=== PATIENT | male | born 1970 | race African-American/Black ===

== ENCOUNTER 2025-10-06 18:55 | Emergency (ER) | payer OTHER ==
[~2025-10-06] VITALS: Ht 170.2 cm; Wt 77.0 kg
[2025-10-06 18:57] VITALS: O2SAT 98
[2025-10-06 21:59] LABS: BASOPHILS % 1.3 % (0.0-2.0); EOSINOPHILS % 2.0 % (0.0-5.0); HEMATOCRIT. 36.6 % (42.0-52.0); HEMOGLOBIN. 11.9 g/dL (14.0-18.0); LYMPHOCYTES % 34.4 % (20.0-50.0); MEAN PLATELET VOLUME 9.1 fl (7.4-10.4); MONOCYTES % 10.7 % (2.0-8.0); NEUTROPHILS % 51.6 % (40.0-76.0); PLATELET 250 x1000/uL (130-400); RED BLOOD CELL COUNT 4.03 mill/uL (4.7-6.1); RED CELL DISTRIBUTION WIDTH 15.6 % (11.6-14.6)
[2025-10-06 22:15] LABS: CREATININE 1.1 mg/dL (0.6-1.3)
[2025-10-06 22:16] LABS: UREA NITROGEN BLOOD 12 mg/dL (9-23)
[2025-10-06] MEDS: IBUPROFEN 600MG TABLET PO SCH (22:44)
[2025-10-06] MEDS ORDERED: NAPR-681 PO (23:04)
[2025-10-06 23:19] VITALS: BP 122/71; PULSE 88; RESP 18; TEMP 37; O2SAT 99
== END 2025-10-06 23:22 | disposition home or self-care (01) ==
LOC: ER 18:55
DX: M47.816 Spondylosis without myelopathy or radiculopathy, lumbar region (principal); I10 Essential (primary) hypertension
CPT/HCPCS: 36415; 72100; 80048; 85025; 93970; 99284